=== PATIENT | female | born 1970 | race Caucasian/White ===

== ENCOUNTER → 2016-08-19 | Outpatient (CLI) | payer OTHER ==
--- NOTE | 2016-08-19 21:47 | US ---
EXAMINATION TYPE: US venous doppler duplex LE BI DATE OF EXAM: 08/19/2016 2:56 PM COMPARISON: NONE CLINICAL HISTORY: 46-year-old female Edema R60.0. Patient complaining of left knee pain and swelling with left calf swelling increasing since 2010 left knee arthroscopy. Patient states has gained weight TECHNIQUE: Duplex Doppler ultrasound examination of the bilateral lower extremities. FINDINGS: SIDE PERFORMED: Bilateral VESSELS IMAGED: External Iliac Vein (EIV) Common Femoral Vein Deep Femoral Vein Greater Saphenous Vein * Femoral Vein Popliteal Vein Small Saphenous Vein * Proximal Calf Veins Posterior tibial veins (* superficial vessels) Right Leg: Negative for DVT Left Leg: Negative for DVT IMPRESSION: No evidence for DVT within the bilateral lower extremities.
== END | disposition home or self-care (01) ==
LOC: RADUSWWP 14:01
PROVIDERS: ATTEND Family Medicine
DX: R60.0 Localized edema (principal)
CPT/HCPCS: 93970

== ENCOUNTER → 2016-09-23 | Outpatient (CLI) | payer OTHER ==
--- NOTE | 2016-09-24 13:10 | MM ---
Reason for exam: screening (asymptomatic). Last mammogram was performed 1 year and 1 month ago. History: Patient is postmenopausal. Taking estrogen for 1 year beginning at age 44. Physical Findings: A clinical breast exam by your physician is recommended on an annual basis and results should be correlated with mammographic findings. MG Screening Mammo w CAD Bilateral CC and MLO view(s) were taken. Prior study comparison: August 29, 2015, bilateral MG screening mammo w CAD. February 10, 2014, bilateral MG screening mammo w CAD. The breast tissue is heterogeneously dense. This may lower the sensitivity of mammography. Finding: There are coarse heterogeneous, grouped/clustered calcifications in the upper quadrant, middle position of the right breast, 8 cm from the nipple. New finding since August 29, 2015. ASSESSMENT: Incomplete: need additional imaging evaluation, BI-RAD 0 RECOMMENDATION: Special view mammogram of the right breast. [facility] will attempt to contact patient to return for supplemental views.
== END ==
LOC: RADMAMWWP 16:00
PROVIDERS: ATTEND Obstetrics & Gynecology
DX: Z12.31 Encounter for screening mammogram for malignant neoplasm of breast (principal); R92.8 Other abnormal and inconclusive findings on diagnostic imaging of breast

== ENCOUNTER → 2017-01-03 | Outpatient (CLI) | payer OTHER ==
--- NOTE | 2017-01-07 07:26 | MM ---
Reason for exam: additional evaluation requested from abnormal screening. Last mammogram was performed 3 months ago. History: Patient is postmenopausal. Taking estrogen for 1 year beginning at age 44. Physical Findings: Nurse did not find any significant physical abnormalities on exam. MG 3D Work Up W/Cad RT CC with magnification, MLO with magnification, and LM view(s) were taken of the right breast. Prior study comparison: September 23, 2016, bilateral MG screening mammo w CAD. August 29, 2015, bilateral MG screening mammo w CAD. The breast tissue is heterogeneously dense. This may lower the sensitivity of mammography. Finding: There are intermediate concern, suspicious round, grouped/clustered calcifications in the upper inner quadrant, middle position of the right breast 8cm from the nipple. New finding since August 29, 2015. These results were verbally communicated with the patient and result sheet given to the patient on 01/03/17. ASSESSMENT: Suspicious, BI-RAD 4 RECOMMENDATION: Surgical consultation and stereotactic core biopsy of the right breast. Called with mammographic findings and has scheduled an appointment for the patient for 01/09/17 at 10:[address] Painting. PRELIMINARY REPORT CALLED AND FAXED TO DR. PAINTING ON 01/07/17 AT 300/TMP.
== END | disposition home or self-care (01) ==
LOC: RADMAMWWP 14:40
PROVIDERS: ATTEND Obstetrics & Gynecology
DX: R92.8 Other abnormal and inconclusive findings on diagnostic imaging of breast (principal)
CPT/HCPCS: G0206; G0279

== ENCOUNTER → 2017-01-29 | Day surgery (SDC) | payer OTHER ==
[2017-01-29 14:05] VITALS: RESP 16; BMI 37.8
[2017-01-29 15:11] VITALS: BP 142/84; PULSE 83; TEMP 98.3
--- NOTE | 2017-01-29 15:35 | MM ---
EXAMINATION TYPE: MG stereo VAD BX RT DATE OF EXAM: 01/29/2017 COMPARISON: 09/23/2016 and 01/03/2017 CLINICAL HISTORY: 46-year-old female abnormal mammogram, new right breast calcifications. TECHNIQUE: Stereotactic guided core biopsy of the right breast. FINDINGS: The procedure of stereotactic guided core biopsy was explained to the patient. Benefits, alternatives, and risks were discussed. An informed consent was then obtained. The [facility] pathway for biopsy [facility]. I performed the localization followed by the remainder of the procedure. An 8 gauge mammotome biopsy gun was used to obtain 4 core samples. The patient tolerated the procedure well without any immediate complication. The patient was kept in the radiology department for short stay after the procedure and then discharged home in stable condition. Targeted calcifications are identified in specimen mammogram. Post biopsy mammogram shows the clip to appear in satisfactory position relative to the targeted area of concern on the preprocedure images. IMPRESSION: SUCCESSFUL, UNCOMPLICATED STEREOTACTIC GUIDED CORE BIOPSY OF RIGHT BREAST UPPER- OUTER QUADRANT MICROCALCIFICATIONS; FULL PATHOLOGY RESULTS TO FOLLOW. 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 Recommendation Surgical consult of the right breast. YOANA
== END ==
LOC: RADMAMWWP 13:44
PROVIDERS: ATTEND Obstetrics & Gynecology
DX: N60.91 Unspecified benign mammary dysplasia of right breast (principal); N64.89 Other specified disorders of breast; R92.8 Other abnormal and inconclusive findings on diagnostic imaging of breast; Z88.5 Allergy status to narcotic agent; Z88.0 Allergy status to penicillin
CPT/HCPCS: 88305; 19081; A4648; J2001

== ENCOUNTER 2017-02-21 06:51 | Day surgery (SDC) | payer OTHER ==
[2017-02-17 13:09] VITALS: BMI 38.1
[~2017-02-21 06:51] MED LIST: DEXAMETHASONE SOD PHOSPHATE 10 MG/ML 1 ML VIAL IV ONE; HEPARIN SODIUM,PORCINE 5,000 UNIT/ML 1 ML VIAL SQ ONE; LACTATED RINGERS 1,000 ML IV SCH; LIDOCAINE 1% 20 ML VIAL (10MG/ML) FOR IV START INTRADERMA PRN; ONDANSETRON 4 MG/2 ML VIAL IVP ONE; Pre Op ABX Message 1 EACH MISC MISCELLANE ONE; SCOPOLAMINE 1.5MG/72HR PATCH TRANSDERM ONE; fentaNYL (PF) 50 MCG/ML 2 ML AMP IV PRN
[2017-02-21] MEDS ORDERED: ALPRAZolam 0.5 MG TAB PO ONE (07:33)
[2017-02-21] MEDS ORDERED: CLINDAMYCIN 600 MG in DEXTROSE 5% IN WATER 50 ML IVPB STA ×2 (08:06)
[2017-02-21] MEDS ORDERED: LIDOCAINE 1% INJ 10MG/ML (20 ML MDV) SQ ONE (08:09)
--- NOTE | 2017-02-21 08:31 | MM ---
EXAMINATION TYPE: MG pre op needle loc RT DATE OF EXAM: 02/21/2017 COMPARISON: 09/23/2016 CLINICAL HISTORY: Abnormal core biopsy TECHNIQUE: Needle localization with wire placement and surgical excision of area of concern in the ri ght breast. FINDINGS: The procedure of needle localization with wire placement and than surgical excision was exp lained to the patient. Benefits, alternatives, and risks were discussed. An informed consent was th en obtained. The shortest pathway for procedure was chosen. Shortest pathway was CC top approach. The overlying s kin was prepped and draped in usual sterile fashion. Lidocaine buffered with bicarbonate was used as anesthetic into the skin and subcutaneous tissue up to the level of area of concern. A 7 cm needle was used. It was placed via a superior approach under mammographic guidance. Subsequent 90 degrees mammogram show the needle to be in satisfactory position relative to the targeted area. At this poin t, wire was placed and the needle was withdrawn. The wire was fixed to patient's skin. Images were marked for surgeon. IMPRESSION: 1. Successful wire localization for surgical excision. Recommendations: 1. Recommendations are pending pathology results.
[2017-02-21] MEDS ORDERED: GLYCOPYRROLATE 0.2 MG/ML 2 ML VIAL ONE (10:09)
[2017-02-21] MEDS ORDERED: fentaNYL (PF) 50 MCG/ML 2 ML AMP ONE (10:09)
[2017-02-21] MEDS ORDERED: PROPOFOL 10 MG/ML 20 ML VIAL IV ONE (10:09)
[2017-02-21] MEDS ORDERED: DEXAMETHASONE SOD PHOS (MDV) 100 MG/10 ML VIAL ONE (10:09)
[2017-02-21] MEDS ORDERED: LIDOCAINE 1% INJ 10MG/ML (20 ML MDV) ONE (10:09)
[2017-02-21] MEDS ORDERED: MIDAZOLAM 2 MG/2 ML VIAL ONE (10:09)
[2017-02-21] MEDS ORDERED: SUCCINYLCHOLINE CHLORIDE VIAL 200 MG/10 ML VIAL IV ONE (10:09)
[2017-02-21] MEDS ORDERED: LIDOCAINE 2%-EPI 1:100,000 20 ML VIAL SQ ONE ×2 (10:40)
[2017-02-21] MEDS ORDERED: LACTATED RINGERS 1,000 ML IV ONE (10:43)
[2017-02-21 11:53] VITALS: TEMP 97
--- NOTE | 2017-02-21 12:07 | P.OP ---
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 Informed consent obtained and patient elected to undergo wire localization lumpectomy. Operative Findings: Description of Procedure: The mammogram films from wire localization biopsy were reviewed. The patient was brought to the operating room and placed in supine position with both arms out. General anesthesia with endotracheal intubation was performed as per anesthesia team. The excess wire was cut and right breast was prepped using ChloraPrep. Sterile drapes were applied. A timeout was performed to verify correct patient, correct procedure and correct side. Patient was confirmed to receive perioperative IV antibiotics, heparin 5000 units subcutaneous injection for DVT prophylaxis and bilateral SCDs. A 3 cm horizontal skin incision was made along natural skin crease overlying the wire. Superior and inferior subcutaneous flaps were raised in the direction of wire. A 2 cm circumferential breast tissue was removed around the wire and the tip of the wire was included in the specimen. The specimen was then labeled with different colors as per the protocol. It was sent off as a specimen for pathology. The resulting defect was irrigated with normal saline and checked for hemostasis. The defect measured cm. A 4x3x3 cm biosorb was used and sutured to the cavity using 3-0 Vicryl. This was closed in 3 layers using interrupted sutures of 3-0 Vicryl followed by running subcuticular stitches of 4-0 Monocryl. Dermabond skin glue was applied. The sponge, instrument and needle count were correct -2. Phone formation received during surgery that the area of concern along with the clip and wire was included in the specimen. Patient tolerated the procedure well and was taken to post anesthesia care unit in stable condition.
[2017-02-21 13:01] VITALS: RESP 16
[2017-02-21 13:31] VITALS: BP 127/78; PULSE 80
--- NOTE | 2017-02-21 15:52 | MM ---
EXAMINATION TYPE: MG surgical specimen RT DATE OF EXAM: 02/21/2017 COMPARISON: NONE CLINICAL HISTORY: Abnormal biopsy TECHNIQUE: Needle localization with wire placement and surgical excision of area of concern in the ri ght breast. FINDINGS: Single mammographic image of the specimen was obtained. The wire is within the specimen. The localized clip is within the specimen near the edge rate IMPRESSION: Successful localization and excision of the targeted region which is at the edge of the f [id number].
== END 2017-02-21 13:58 | disposition home or self-care (01) ==
LOC: RADMAMWWP 06:51
PROVIDERS: ATTEND Surgery
DX: N60.91 Unspecified benign mammary dysplasia of right breast (principal); E88.01 Alpha-1-antitrypsin deficiency; Z79.899 Other long term (current) drug therapy; Z88.5 Allergy status to narcotic agent
CPT/HCPCS: 76098; 19281; 19301; C1713; J2250; J0330; J1100 ×2; J2405; J2001; J3010; J2704; 88307

== ENCOUNTER → 2017-12-23 | Outpatient (CLI) | payer OTHER ==
--- NOTE | 2017-12-24 08:56 | MM ---
Reason for exam: additional evaluation requested from prior study. Last mammogram was performed 1 year ago. History: Patient is postmenopausal and has history of breast cancer at age 46. Benign MG pre op needle loc RT of the right breast, February 21, 2017. Malignant MG stereo VAD BX RT of the right breast, January 29, 2017. Took estrogen for 1 year beginning at age 44. Physical Findings: Nurse did not find any significant physical abnormalities on exam. MG 3D Diag Mammo W/Cad LISA Bilateral CC and MLO view(s) were taken. Prior study comparison: January 03, 2017, right breast MG 3d work up w/cad RT. September 23, 2016, bilateral MG screening mammo w CAD. The breast tissue is heterogeneously dense. This may lower the sensitivity of mammography. Surgical clips right breast. No significant new findings when compared with previous films. These results were verbally communicated with the patient and result sheet given to the patient on 12/23/17. ASSESSMENT: Benign, BI-RAD 2 RECOMMENDATION: Follow-up diagnostic mammogram of both breasts in 1 year.
== END | disposition home or self-care (01) ==
LOC: RADMAMWWP 15:27
PROVIDERS: ATTEND Obstetrics & Gynecology
DX: R92.8 Other abnormal and inconclusive findings on diagnostic imaging of breast (principal); Z85.3 Personal history of malignant neoplasm of breast
CPT/HCPCS: 77062; 77066

== ENCOUNTER 2019-02-27 12:59 | Emergency (ER) | payer BC, OTHER ==
[2019-02-27 13:04] VITALS: RESP 16; TEMP 98
[2019-02-27] MEDS ORDERED: SODIUM CHLORIDE 0.9% 1,000 ML IV STA (13:07)
--- NOTE | 2019-02-27 13:38 | ED ---
Abdominal Pain HPI - General Chief Complaint: Abdominal Pain Stated Complaint: Abd pain Time Seen by Provider: 02/27/19 13:06 Source: patient, family Mode of arrival: ambulatory Limitations: no limitations - History of Present Illness Initial Comments: 48-year-old female presents emergency Department with chief complaint of abdominal discomfort, abdominal pressure. Patient states that he's had symptoms last few days. Patient denies any known fevers or chills. Patient felt that she had a urinary tract infection went to urgent care who ran a urinalysis no acute findings. Patient is a here for further evaluation. Patient had multiple C-sections in the past and history of appendectomy. Patient denies any nausea vomiting diarrhea constipation. 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 - Related Data Home Medications Medication Instructions Recorded Confirmed Ergocalciferol (Vitamin D2) 50,000 unit PO WE 01/23/17 02/21/17 [Vitamin D2] Lisinopril [Prinivil] 10 mg PO DAILY 01/23/17 02/17/17 Cetirizine HCl [Zyrtec] 10 mg PO DAILY PRN 01/29/17 02/17/17 Ascorbic Acid [Vitamin C] 500 mg PO DAILY 02/17/17 02/17/17 Magnesium Oxide [Mag-Ox] 250 mg PO DAILY 02/17/17 02/21/17 Multivitamins, Thera [Multivitamin 1 tab PO DAILY 02/17/17 02/17/17 (formulary)] Previous Rx's Medication Instructions Recorded Docusate [Colace] 100 mg PO BID #30 capsule 02/21/17 traMADol HCL [Ultram] 50 mg PO Q4HR PRN #30 tab 02/21/17 Ciprofloxacin HCl [Cipro] 500 mg PO Q12HR #14 tablet 02/27/19 metroNIDAZOLE [Flagyl] 500 mg PO TID #21 tab 02/27/19 Allergies Allergy/AdvReac Type Severity Reaction Status Date / Time Penicillins Allergy Rash/Hives Verified 02/27/19 13:01 codeine AdvReac Vomiting Verified 02/27/19 13:01 Review of Systems ROS Statement: Those systems with pertinent positive or pertinent negative responses have been documented in the HPI. ROS Other: All systems not noted in ROS Statement are negative. Past Medical History Past Medical History: Cancer, Hearing Disorder / Deafness, Hypertension, Liver Disease Additional Past Medical History / Comment(s): ALPHA 1 ANTITRYPSIN DEFICIENCY. RT BREAST CA. EDEMA LT LOWER LEG. NEPHROTIC SYNDROME. HEART MURMUR. F4 cirrhosis History of Any Multi-Drug Resistant Organisms: None Reported Past Surgical History: Section, Hysterectomy, Orthopedic Surgery, Tonsillectomy, Tubal Ligation, Uterine Ablation Additional Past Surgical History / Comment(s): KIDNEY BIOPSY. LT KNEE SCOPE 2010 Past Anesthesia/Blood Transfusion Reactions: Motion Sickness, Postoperative Nausea & Vomiting (PONV) Past Psychological History: No Psychological Hx Reported Smoking Status: Never smoker Past Alcohol Use History: None Reported Past Drug Use History: None Reported - Past Family History Sister(s) Family Medical History: Cancer General Exam Limitations: no limitations General appearance: alert, in no apparent distress Head exam: Present: atraumatic, normocephalic, normal inspection Eye exam: Present: normal appearance, PERRL, EOMI. Absent: scleral icterus, conjunctival injection, periorbital swelling ENT exam: Present: normal exam, normal oropharynx, mucous membranes moist Neck exam: Present: normal inspection, full ROM. Absent: tenderness, meningismus, lymphadenopathy Respiratory exam: Present: normal lung sounds bilaterally. Absent: respiratory distress, wheezes, rales, rhonchi, stridor Cardiovascular Exam: Present: regular rate, normal rhythm, normal heart sounds. Absent: systolic murmur, diastolic murmur, rubs, gallop, clicks GI/Abdominal exam: Present: soft, tenderness (Moderate lower abdominal t enderness), normal bowel sounds. Absent: distended, guarding, rebound, rigid Back exam: Absent: CVA tenderness (R), CVA tenderness (L) Skin exam: Present: warm, dry, intact, normal color. Absent: rash Course Vital Signs 02/27/19 13:01 Temperature 98 F Pulse Rate 86 Respiratory 16 Rate Blood Pressure 137/89 O2 Sat by Pulse 96 Oximetry Medical Decision Making - Medical Decision Making 48-year-old female presents emergency Department with chief complaint of abdominal discomfort. CT shows evidence of mild diverticulitis. Patient be treated with Cipro Flagyl as she has an ALLERGY to penicillin products. Patient is scheduled for colonoscopy. Patient is advised to do clear liquid diet and return for any worsening symptoms. - Lab Data Result diagrams: 02/27/19 13:40 02/27/19 13:40 Lab Results 02/27/19 02/27/19 02/27/19 Range/Units 13:30 13:40 13:40 WBC 6.3 (3.8-10.6) k/uL RBC 4.52 (3.80-5.40) m/uL Hgb 13.8 (11.4-16.0) gm/dL Hct 42.0 (34.0-46.0) % MCV 92.9 (80.0-100.0) fL MCH 30.5 (25.0-35.0) pg MCHC 32.8 (31.0-37.0) g/dL RDW 14.7 (11.5-15.5) % Plt Count 125 L (150-450) k/uL Neutrophils % 45 % Lymphocytes % 40 % Monocytes % 8 % Eosinophils % 3 % Basophils % 0 % Neutrophils # 2.8 (1.3-7.7) k/uL Lymphocytes # 2.5 (1.0-4.8) k/uL Monocytes # 0.5 (0-1.0) k/uL Eosinophils # 0.2 (0-0.7) k/uL Basophils # 0.0 (0-0.2) k/uL Sodium 141 (137-145) mmol/L Potassium 4.0 (3.5-5.1) mmol/L Chloride 105 (98-107) mmol/L Carbon Dioxide 25 (22-30) mmol/L Anion Gap 11 mmol/L BUN 11 (7-17) mg/dL Creatinine 0.52 (0.52-1.04) mg/dL Est GFR (CKD-EPI)AfAm >90 (>60 ml/min/1.73 sqM) Est GFR (CKD-EPI)NonAf >90 (>60 ml/min/1.73 sqM) Glucose 83 (74-99) mg/dL Plasma Lactic Acid Benigno (0.7-2.0) mmol/L Calcium 9.5 (8.4-10.2) mg/dL Total Bilirubin 0.4 (0.2-1.3) mg/dL AST 59 H (14-36) U/L ALT 51 (9-52) U/L Alkaline Phosphatase 121 (38-126) U/L Total Protein 8.2 (6.3-8.2) g/dL Albumin 4.4 (3.5-5.0) g/dL Lipase 74 (23-300) U/L Urine Color Yellow Urine Appearance Clear (Clear) Urine pH 6.5 (5.0-8.0) Ur Specific [place] 1.017 (1.001-1.035) Urine Protein Negative (Negative) Urine Glucose (UA) Negative (Negative) Urine Ketones Negative (Negative) Urine Blood Negative (Negative) Urine Nitrite Negative (Negative) Urine Bilirubin Negative (Negative) Urine Urobilinogen <2.0 (<2.0) mg/dL Ur Leukocyte Esterase Negative (Negative) 02/27/19 Range/Units 13:40 WBC (3.8-10.6) k/uL RBC (3.80-5.40) m/uL Hgb (11.4-16.0) gm/dL Hct (34.0-46.0) % MCV (80.0-100.0) fL MCH (25.0-35.0) pg MCHC (31.0-37.0) g/dL RDW (11.5-15.5) % Plt Count (150-450) k/uL Neutrophils % % Lymphocytes % % Monocytes % % Eosinophils % % Basophils % % Neutrophils # (1.3-7.7) k/uL Lymphocytes # (1.0-4.8) k/uL Monocytes # (0-1.0) k/uL Eosinophils # (0-0.7) k/uL Basophils # (0-0.2) k/uL Sodium (137-145) mmol/L Potassium (3.5-5.1) mmol/L Chloride (98-107) mmol/L Carbon Dioxide (22-30) mmol/L Anion Gap mmol/L BUN (7-17) mg/dL Creatinine (0.52-1.04) mg/dL Est GFR (CKD-EPI)AfAm (>60 ml/min/1.73 sqM) Est GFR (CKD-EPI)NonAf (>60 ml/min/1.73 sqM) Glucose (74-99) mg/dL Plasma Lactic Acid Benigno 1.4 (0.7-2.0) mmol/L Calcium (8.4-10.2) mg/dL Total Bilirubin (0.2-1.3) mg/dL AST (14-36) U/L ALT (9-52) U/L Alkaline Phosphatase (38-126) U/L Total Protein (6.3-8.2) g/dL Albumin (3.5-5.0) g/dL Lipase (23-300) U/L Urine Color Urine Appearance (Clear) Urine pH (5.0-8.0) Ur Specific [place] (1.001-1.035) Urine Protein (Negative) Urine Glucose (UA) (Negative) Urine Ketones (Negative) Urine Blood (Negative) Urine Nitrite (Negative) Urine Bilirubin (Negative) Urine Urobilinogen (<2.0) mg/dL Ur Leukocyte Esterase (Negative) Disposition Clinical Impression: Diverticulitis Disposition: HOME SELF-CARE Condition: Stable Instructions (If sedation given, give patient instructions): Diverticulitis Diet (ED), Diverticulitis (ED) Additional Instructions: Please return to the Emergency Department if symptoms worsen or any other concerns. Prescriptions: Ciprofloxacin HCl [Cipro] 500 mg PO Q12HR #14 tablet metroNIDAZOLE [Flagyl] 500 mg PO TID #21 tab Is patient prescribed a controlled substance at d/c from ED?: No Referrals: Phill Berumen DO [Primary Care Provider] - 1-2 days Time of Disposition: 15:03
[2019-02-27 13:53] LABS: Appearance,Urine Clear (Clear); Bilirubin,Urine Negative (Negative); Blood,Urine Negative (Negative); Color,Urine Yellow; Glucose,Urine (UA) Negative (Negative); Ketones,Urine Negative (Negative); Leukocyte Esterase,Urine Negative (Negative); Nitrite,Urine Negative (Negative); PH, Urine 6.5 (5.0-8.0); Protein,Urine Negative (Negative); Specific Gravity,Urine 1.017 (1.001-1.035); Urobilinogen,Urine <2.0 mg/dL (<2.0)
[2019-02-27 13:53] LABS: Basophils % (A) 0 %; Eosinophils # (A) 0.2 k/uL (0-0.7); Eosinophils % (A) 3 %; HGB 13.8 gm/dL (11.4-16.0); Lymphocytes # (A) 2.5 k/uL (1.0-4.8); Lymphocytes % (A) 40 %; MCH 30.5 pg (25.0-35.0); MCHC 32.8 g/dL (31.0-37.0); MCV 92.9 fL (80.0-100.0); Mean Platelet Volume 7.3; Monocytes # (A) 0.5 k/uL (0-1.0); Monocytes % (A) 8 %; Neutrophils # (A) 2.8 k/uL (1.3-7.7); Neutrophils % (A) 45 %; Platelet Count 125 k/uL (150-450); RBC 4.52 m/uL (3.80-5.40); RDW 14.7 % (11.5-15.5); WBC 6.3 k/uL (3.8-10.6)
[2019-02-27 14:05] LABS: ALT 51 U/L (9-52); AST 59 U/L (14-36); African American GFR (CKD) >90 (>60 ml/min/1.73 sqM); Albumin 4.4 g/dL (3.5-5.0); Alkaline Phosphatase 121 U/L (38-126); Anion Gap 11 mmol/L; Blood Urea Nitrogen 11 mg/dL (7-17); Calcium 9.5 mg/dL (8.4-10.2); Carbon Dioxide 25 mmol/L (22-30); Chloride 105 mmol/L (98-107); Glucose 83 mg/dL (74-99); Non-African American GFR(CKD) >90 (>60 ml/min/1.73 sqM); Sodium 141 mmol/L (137-145); Total Bilirubin 0.4 mg/dL (0.2-1.3); Total Protein 8.2 g/dL (6.3-8.2)
--- NOTE | 2019-02-27 14:47 | CT ---
EXAMINATION TYPE: CT abdomen pelvis w con DATE OF EXAM: 02/27/2019 COMPARISON: 11/08/2013 HISTORY: Pelvic pain and pressure x [address] DLP: 1069.2 mGycm Automated exposure control for dose reduction was used. TECHNIQUE: Helical acquisition of images was performed from the lung bases through the pelvis. CONTRAST: Performed without Oral Contrast and with IV Contrast, patient injected with 100 mL of Isovue M300. FINDINGS: There is minimal reticular density at the lung bases. There is no pleural effusion. There is no peric ardial effusion. Stomach appears fairly normal. Spleen is mildly enlarged and measures 13 cm. Liver s hows no focal defect. Bile ducts are not dilated. There is no pancreatic mass. Gallbladder appears no rmal. There is no adrenal mass. Kidneys show satisfactory contrast opacification. There is no hydronephrosi s. Ureters are not dilated. There is no retroperitoneal adenopathy. There are multiple diverticula in the sigmoid colon. Bladder distends smoothly. There is no inguinal hernia. There is no free fluid in the pelvis. There is no sign of thickened appendix. There is some very mini mal fat stranding around the sigmoid colon. There is no evidence of an abscess. There is no sign of p elvic mass. There is no evidence of free air. Hysterectomy is noted. There are spondylotic changes in the lumbar spine. There is no compression fracture. Bony pelvis appe ars intact. There is some posterior multilevel lumbar disc herniation without significant spinal sten osis. IMPRESSION: THERE IS MILD SIGMOID DIVERTICULOSIS. THERE IS MINIMAL INFLAMMATORY CHANGES AROUND THE SIGMOID COLON SUGGESTIVE OF MILD DIVERTICULITIS. THIS IS A CHANGE COMPARED TO OLD EXAM. THERE IS MILD SPLENOMEGALY THAT IS NEW COMPARED TO OLD EXAM.
[2019-02-27 15:29] VITALS: BP 129/85; PULSE 88
== END 2019-02-27 15:29 | disposition home or self-care (01) ==
LOC: EC 12:59
DX: K57.92 Diverticulitis of intestine, part unspecified, without perforation or abscess without bleeding (principal); I10 Essential (primary) hypertension; Z85.3 Personal history of malignant neoplasm of breast; Z90.710 Acquired absence of both cervix and uterus; Z98.51 Tubal ligation status; Z98.890 Other specified postprocedural states; Z90.49 Acquired absence of other specified parts of digestive tract; Z79.899 Other long term (current) drug therapy; Z88.5 Allergy status to narcotic agent; Z88.0 Allergy status to penicillin
CPT/HCPCS: 36415; 80053; 83605; 83690; 85025; 81003; 74177; 99284; 96360; Q9967

== ENCOUNTER 2024-07-21 08:05 | Emergency (ER) | payer MEDICARE, OTHER ==
[2024-07-21 08:13] VITALS: TEMP 98.2
--- NOTE | 2024-07-21 08:46 | ED ---
Abdominal Pain HPI - General Chief Complaint: Abdominal Pain Stated Complaint: abd pain Time Seen by Provider: 07/21/24 08:15 Source: patient, family, RN notes reviewed Mode of arrival: ambulatory Limitations: no limitations - History of Present Illness Initial Comments: Patient is a 54 year old female presenting to ER with worsening abdominal pain for the past week. She describes the pain as "achey" and diffuse with radiation to her back. She states the pain is worse with food and fluids, as she feels full easily. She states she has a headache and dyspnea on exertion which are both new for her, as well as nausea without vomiting, and chronic diarrhea. She has tried Tylenol, but it has not helped. She endorses multiple abdominal surgeries in the past including a hysterectomy and appendectomy. 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 - Related Data Home Medications Medication Instructions Recorded Confirmed Ergocalciferol (Vitamin D2) 50,000 unit PO WE 01/23/17 02/21/17 [Vitamin D2] lisinopriL [Prinivil] 10 mg PO DAILY 01/23/17 02/17/17 Cetirizine HCl [Zyrtec] 10 mg PO DAILY PRN 01/29/17 02/17/17 Ascorbic Acid [Vitamin C] 500 mg PO DAILY 02/17/17 02/17/17 Magnesium Oxide [Mag-Ox] 250 mg PO DAILY 02/17/17 02/21/17 Multivitamins, Thera [Multivitamin 1 tab PO DAILY 02/17/17 02/17/17 (formulary)] Previous Rx's Medication Instructions Recorded Docusate [Colace] 100 mg PO BID #30 capsule 02/21/17 traMADol HCL [Ultram] 50 mg PO Q4HR PRN #30 tab 02/21/17 Ciprofloxacin HCl [Cipro] 500 mg PO Q12HR #14 tablet 02/27/19 metroNIDAZOLE [Flagyl] 500 mg PO TID #21 tab 02/27/19 Allergies Allergy/AdvReac Type Severity Reaction Status Date / Time Penicillins Allergy Rash/Hives Verified 07/21/24 08:08 codeine AdvReac Vomiting Verified 07/21/24 08:08 Review of Systems ROS Statement: Those systems with pertinent positive or pertinent negative responses have been documented in the HPI. ROS Other: All systems not noted in ROS Statement are negative. Past Medical History Past Medical History: Cancer, Hearing Disorder / Deafness, Hypertension, Liver Disease Additional Past Medical History / Comment(s): ALPHA 1 ANTITRYPSIN DEFICIENCY. RT BREAST CA. EDEMA LT LOWER LEG. NEPHROTIC SYNDROME. HEART MURMUR. F4 cirrhosis History of Any Multi-Drug Resistant Organisms: None Reported Past Surgical History: Section, Hysterectomy, Orthopedic Surgery, Tonsillectomy, Tubal Ligation, Uterine Ablation Additional Past Surgical History / Comment(s): KIDNEY BIOPSY. LT KNEE SCOPE 2010 Past Anesthesia/Blood Transfusion Reactions: Motion Sickness, Postoperative Nausea & Vomiting (PONV) Past Psychological History: No Psychological Hx Reported Smoking Status: Never smoker Past Alcohol Use History: None Reported Past Drug Use History: None Reported - Past Family History Sister(s) Family Medical History: Cancer General Exam Limitations: no limitations General appearance: alert, in no apparent distress Head exam: Present: atraumatic, normocephalic, normal inspection ENT exam: Present: normal exam, mucous membranes moist Neck exam: Present: normal inspection. Absent: tenderness, meningismus, lymp hadenopathy Respiratory exam: Present: normal lung sounds bilaterally. Absent: respiratory distress, wheezes, rales, rhonchi, stridor Cardiovascular Exam: Present: regular rate, normal rhythm, normal heart sounds. Absent: systolic murmur, diastolic murmur, rubs, gallop, clicks GI/Abdominal exam: Present: distended (mild), normal bowel sounds. Absent: tenderness, guarding, rebound Extremities exam: Present: pedal edema. Absent: calf tenderness Back exam: Present: normal inspection. Absent: CVA tenderness (R), CVA tenderness (L) Neurological exam: Present: alert, oriented X3, CN II-XII intact Psychiatric exam: Present: normal affect, normal mood Skin exam: Present: warm, dry, intact, normal color. Absent: rash Course Vital Signs 07/21/24 07/21/24 07/21/24 08:06 08:53 10:12 Temperature 98.2 F Pulse Rate 111 H 98 85 Respiratory 19 20 16 Rate Blood Pressure 143/81 143/83 140/68 O2 Sat by Pulse 93 L 95 98 Oximetry 07/21/24 11:22 Temperature Pulse Rate 65 Respiratory 16 Rate Blood Pressure 135/68 O2 Sat by Pulse 98 Oximetry Medical Decision Making - Medical Decision Making Was pt. sent in by a medical professional or institution (, [facility], CONSULTING SENIOR PRACTICE DIRECTOR, urgent care, hospital, or alf...) When possible be specific @ -No Did you speak to anyone other than the patient for history (EMS, parent, family, police, friend...)? What history was obtained from this source @ -No Did you review nursing and triage notes (agree or disagree)? Why? @ -I reviewed and agree with nursing and triage notes Were old charts reviewed (outside hosp., previous admission, EMS record, old EKG, old radiological studies, urgent care reports/EKG's, alf records)? Report findings @ -No old charts were reviewed Differential Diagnosis (chest pain, altered mental status, abdominal pain women, abdominal pain men, vaginal bleeding, weakness, fever, dyspnea, syncope, headache, dizziness, GI bleed, back pain, seizure, CVA, palpatations, mental health, musculoskeletal)? @ -Differential Abdominal Pain Women: Appendicitis, Cholecystitis, diverticulosis, ischemic bowel, pancreatitis, hepatitis, UTI, gastroenteritis, AAA, incarcerated hernia, bowel obstruction, constipation, inflammatory bowel, hepatitis, peptic ulcer disease, splenic infarction, perforated viscus, vulvitis, ovarian torsion, PID, kidney stone, placenta abruption, this is not meant to be an all-inclusive list EKG interpreted by me (3pts min.). @ -None X-rays interpreted by me (1pt min.). @ -None done CT interpreted by me (1pt min.). @ -CT abdomen pelvis showing moderate ascites U/S interpreted by me (1pt. min.). @ -None done What testing was considered but not performed or refused? (CT, X-rays, U/S, labs)? Why? @ -None What meds were considered but not given or refused? Why? @ -None Did you discuss the management of the patient with other professionals (professionals i.e. [facility] Munoz, CONSULTING SENIOR PRACTICE DIRECTOR, lab, RT, psych nurse, social work msw, rn care transition, teacher, banking officer, piano case and bench assembler)? Give summary @ -No Was smoking cessation discussed for >3mins.? @ -No Was critical care preformed (if so, how long)? @ -No Were there social determinants of health that impacted care today? How? (Home lessness, low income, unemployed, alcoholism, drug addiction, transportation, low edu. Level, literacy, decrease access to med. care, fpc, rehab)? @ -No Was there de-escalation of care discussed even if they declined (Discuss DNR or withdrawal of care, Hospice)? DNR status @ -No What co-morbidities impacted this encounter? (DM, HTN, Smoking, COPD, CAD, Cancer, CVA, ARF, Chemo, Hep., AIDS, mental health diagnosis, sleep apnea, morbid obesity)? @ -Liver cirrhosis Was patient admitted / discharged? Hospital course, mention meds given and route, prescriptions, significant lab abnormalities, going to OR and other pertinent info. @ -Charge patient has moderate ascites may require paracentesis she is otherwise stable and having worsening liver disease she has a follow-up appointment with her police captain precinct advised to follow-up or make sooner appointment for possible paracentesis Undiagnosed new problem with uncertain prognosis? @ -No Drug Therapy requiring intensive monitoring for toxicity (Heparin, Nitro, Insulin, Cardizem)? @ -No Were any procedures done? @ -No Diagnosis/symptom? @ -Ascites, abdominal pain Acute, or Chronic, or Acute on Chronic? @ -Acute Uncomplicated (without systemic symptoms) or Complicated (systemic symptoms)? @ -Complicated Side effects of treatment? @ -No Exacerbation, Progression, or Severe Exacerbation? @ -No Poses a threat to life or bodily function? How? (Chest pain, [place], [place], pneumonia, PE, COPD, DKA, ARF, appy, cholecystitis, CVA, Diverticulitis, Homicidal, Suicidal, threat to staff... and all critical care pts) @ -No - Lab Data Result diagrams: 07/21/24 08:37 07/21/24 08:37 Lab Results 07/21/24 07/21/24 07/21/24 Range/Units 08:37 08:37 08:37 WBC 4.7 (3.8-10.6) k/uL RBC 3.78 L (3.80-5.40) m/uL Hgb 13.4 (11.4-16.0) gm/dL Hct 39.7 (34.0-46.0) % MCV 104.9 H (80.0-100.0) fL MCH 35.5 H (25.0-35.0) pg MCHC 33.9 (31.0-37.0) g/dL RDW 15.8 H (11.5-15.5) % Plt Count 74 L (150-450) k/uL MPV 8.3 Neutrophils % 48 % Lymphocytes % 38 % Monocytes % 6 % Eosinophils % 5 % Basophils % 1 % Neutrophils # 2.3 (1.3-7.7) k/uL Lymphocytes # 1.8 (1.0-4.8) k/uL Monocytes # 0.3 (0-1.0) k/uL Eosinophils # 0.2 (0-0.7) k/uL Basophils # 0.0 (0-0.2) k/uL Manual Slide Review Performed Macrocytosis Moderate Sodium 140 (137-145) mmol/L Potassium 3.7 (3.5-5.1) mmol/L Chloride 111 H (98-107) mmol/L Carbon Dioxide 21 L (22-30) mmol/L Anion Gap 8 mmol/L BUN 10 (7-17) mg/dL Creatinine 0.49 L (0.52-1.04) mg/dL Est GFR (CKD-EPI)AfAm >90 (>60 ml/min/1.73 sqM) Est GFR (CKD-EPI)NonAf >90 (>60 ml/min/1.73 sqM) Glucose 92 (74-99) mg/dL Plasma Lactic Acid Benigno 2.0 (0.7-2.0) mmol/L Calcium 8.3 L (8.4-10.2) mg/dL Total Bilirubin 2.4 H (0.2-1.3) mg/dL AST 59 H (14-36) U/L ALT 34 (4-34) U/L Alkaline Phosphatase 273 H (38-126) U/L Total Protein 6.9 (6.3-8.2) g/dL Albumin 3.1 L (3.5-5.0) g/dL Lipase 83 (23-300) U/L Urine Color Urine Appearance (Clear) Urine pH (5.0-8.0) Ur Specific Bryan (1.001-1.035) Urine Protein (Negative) Urine Glucose (UA) (Negative) Urine Ketones (Negative) Urine Blood (Negative) Urine Nitrite (Negative) Urine Bilirubin (Negative) Urine Urobilinogen (<2.0) mg/dL Ur Leukocyte Esterase (Negative) Urine RBC (0-5) /hpf Urine WBC (0-5) /hpf Ur Squamous Epith Cells (0-4) /hpf Urine Mucus (None) /hpf 07/21/24 Range/Units 08:49 WBC (3.8-10.6) k/uL RBC (3.80-5.40) m/uL Hgb (11.4-16.0) gm/dL Hct (34.0-46.0) % MCV (80.0-100.0) fL MCH (25.0-35.0) pg MCHC (31.0-37.0) g/dL RDW (11.5-15.5) % Plt Count (150-450) k/uL MPV Neutrophils % % Lymphocytes % % Monocytes % % Eosinophils % % Basophils % % Neutrophils # (1.3-7.7) k/uL Lymphocytes # (1.0-4.8) k/uL Monocytes # (0-1.0) k/uL Eosinophils # (0-0.7) k/uL Basophils # (0-0.2) k/uL Manual Slide Review Macrocytosis Sodium (137-145) mmol/L Potassium (3.5-5.1) mmol/L Chloride (98-107) mmol/L Carbon Dioxide (22-30) mmol/L Anion Gap mmol/L BUN (7-17) mg/dL Creatinine (0.52-1.04) mg/dL Est GFR (CKD-EPI)AfAm (>60 ml/min/1.73 sqM) Est GFR (CKD-EPI)NonAf (>60 ml/min/1.73 sqM) Glucose (74-99) mg/dL Plasma Lactic Acid Benigno (0.7-2.0) mmol/L Calcium (8.4-10.2) mg/dL Total Bilirubin (0.2-1.3) mg/dL AST (14-36) U/L ALT (4-34) U/L Alkaline Phosphatase (38-126) U/L Total Protein (6.3-8.2) g/dL Albumin (3.5-5.0) g/dL Lipase (23-300) U/L Urine Color Dark Yellow Urine Appearance Cloudy H (Clear) Urine pH 5.5 (5.0-8.0) Ur Specific Bryan 1.035 (1.001-1.035) Urine Protein 1+ H (Negative) Urine Glucose (UA) Negative (Negative) Urine Ketones Negative (Negative) Urine Blood Trace H (Negative) Urine Nitrite Negative (Negative) Urine Bilirubin Negative (Negative) Urine Urobilinogen 2.0 (<2.0) mg/dL Ur Leukocyte Esterase Negative (Negative) Urine RBC 3 (0-5) /hpf Urine WBC 2 (0-5) /hpf Ur Squamous Epith Cells 23 H (0-4) /hpf Urine Mucus Many H (None) /hpf Disposition Clinical Impression: Abdominal pain, Ascites Disposition: HOME SELF-CARE Condition: Stable Instructions (If sedation given, give patient instructions): Abdominal Pain (ED) Additional Instructions: Please return to the Emergency Department if symptoms worsen or any other concerns. Is patient prescribed a controlled substance at d/c from ED?: No Referrals: Zayda Fox MD [Primary Care Provider] - 1-2 days Time of Disposition: 10:26
[2024-07-21] MEDS: SODIUM CHLORIDE 0.9% 1,000 ML IV STA (08:50)
[2024-07-21] MEDS: ONDANSETRON 4 MG/2 ML VIAL IVP STA (08:50)
[2024-07-21 09:21] LABS: ALT 34 U/L (4-34); AST 59 U/L (14-36); African American GFR (CKD) >90 (>60 ml/min/1.73 sqM); Albumin 3.1 g/dL (3.5-5.0); Alkaline Phosphatase 273 U/L (38-126); Anion Gap 8 mmol/L; Blood Urea Nitrogen 10 mg/dL (7-17); Calcium 8.3 mg/dL (8.4-10.2); Carbon Dioxide 21 mmol/L (22-30); Chloride 111 mmol/L (98-107); Glucose 92 mg/dL (74-99); Lipase 83 U/L (23-300); Non-African American GFR(CKD) >90 (>60 ml/min/1.73 sqM); Potassium 3.7 mmol/L (3.5-5.1); Sodium 140 mmol/L (137-145); Total Bilirubin 2.4 mg/dL (0.2-1.3); Total Protein 6.9 g/dL (6.3-8.2)
[2024-07-21 09:25] LABS: Basophils % (A) 1 %; Eosinophils # (A) 0.2 k/uL (0-0.7); Eosinophils % (A) 5 %; HCT 39.7 % (34.0-46.0); HGB 13.4 gm/dL (11.4-16.0); Lymphocytes # (A) 1.8 k/uL (1.0-4.8); Lymphocytes % (A) 38 %; MCH 35.5 pg (25.0-35.0); MCHC 33.9 g/dL (31.0-37.0); MCV 104.9 fL (80.0-100.0); Macrocytosis Moderate; Mean Platelet Volume 8.3; Monocytes # (A) 0.3 k/uL (0-1.0); Monocytes % (A) 6 %; Neutrophils # (A) 2.3 k/uL (1.3-7.7); Neutrophils % (A) 48 %; RBC 3.78 m/uL (3.80-5.40); RDW 15.8 % (11.5-15.5); WBC 4.7 k/uL (3.8-10.6)
[2024-07-21 09:28] LABS: Appearance,Urine Cloudy (Clear); Bilirubin,Urine Negative (Negative); Blood,Urine Trace (Negative); Color,Urine Dark Yellow; Glucose,Urine (UA) Negative (Negative); Ketones,Urine Negative (Negative); Leukocyte Esterase,Urine Negative (Negative); Mucus,Urine Many /hpf; Nitrite,Urine Negative (Negative); PH, Urine 5.5 (5.0-8.0); Protein,Urine 1+ (Negative); RBC,Urine 3 /hpf (0-5); Specific Gravity,Urine 1.035 (1.001-1.035); Squamous Epithelial Cell,Urine 23 /hpf (0-4); WBC,Urine 2 /hpf (0-5)
[2024-07-21 09:35] LABS: Platelet Count 74 k/uL (150-450)
--- NOTE | 2024-07-21 09:54 | CT ---
EXAMINATION TYPE: CT abdomen pelvis w con DATE OF EXAM: 07/21/2024 9:44 AM COMPARISON: None. CLINICAL INDICATION: Female, 54 years old with history of abdominal pain, Abdominal pain. Hx breast c a, liver cirrhosis. TECHNIQUE: Axial images were obtained from above the diaphragm to the pubic rami in the axial plane a t 5 mm thick sections. Reconstructed images are reviewed on the computer in the coronal plane. CONTRAST: 100 mL of Isovue 300. Study performed without Oral Contrast DLP: 1770.7 mGycm, Automated exposure control for dose reduction was used. FINDINGS: Limited CT sections are obtained the lung bases. The lung bases are clear. CT ABDOMEN: Moderate ascites is present Liver: Normal Spleen: Normal Pancreas: Normal Adrenal glands: The adrenal glands are normal. Gallbladder: There may be some wall calcification adjacent to the liver. Kidneys: No masses are evident. No hydronephrosis is present. No cysts are present. Delayed images were obtained through the kidneys, which remain unremarkable. Aorta: Normal Inferior vena cava: Normal. CT PELVIS: Small bowel is nondilated. However, some diffuse wall thickening through the jejunum may be present. Consider jejunitis. The study is without oral contrast limiting bowel evaluation. Appendix: Not identified. No suspicious dilated tubular structure identified. Clinical management of any suspected appendicitis is recommended. Urinary bladder: Decompressed and cannot be well evaluated Genitourinary structures: Uterus and ovaries are not identified Osseous structures: No suspicious lytic or sclerotic lesions. IMPRESSION: 1. Moderate ascites. 2. Some mild small bowel wall thickening not excluded. 2. Discrete abnormality to account for abdominal pain not identified. [facility], Workstation: [facility], 07/21/2024 9:51 AM
[2024-07-21 11:22] VITALS: RESP 16
[2024-07-21 11:23] VITALS: BP 135/68; PULSE 65
== END 2024-07-21 11:23 | disposition home or self-care (01) ==
LOC: EC 08:05
DX: R18.8 Other ascites (principal); R10.9 Unspecified abdominal pain; K74.60 Unspecified cirrhosis of liver; Z88.5 Allergy status to narcotic agent; Z88.0 Allergy status to penicillin
CPT/HCPCS: 36415; 80053; 83605; 83690; 85025; 81001; 74177; 99284; 96374; 96361 ×2; J2405; Q9967

== ENCOUNTER 2024-11-20 15:53 | Observation (INO) | payer MEDICARE, OTHER ==
[2024-11-20 16:10] LABS: Glucose,Whole Blood 79 mg/dL (70-110)
[2024-11-20 16:20] LABS: Glucose,Whole Blood 76 mg/dL (70-110)
[2024-11-20 16:45] LABS: VBG PH 7.4 (7.31-7.41)
[2024-11-20 16:46] LABS: Basophils # (A) 0.04 10*3/uL (0.00-0.10); Basophils % (A) 0.7 %; Eosinophils # (A) 0.18 10*3/uL (0.04-0.35); Eosinophils % (A) 3.2 %; HCT 44.7 % (37.2-46.3); Immature Platelet Fraction 2.3 % (1.1-6.1); Lymphocytes # (A) 1.99 10*3/uL (0.90-5.00); Lymphocytes % (A) 35.2 %; MCH 37.3 pg (27.0-32.0); MCHC 35.8 g/dL (32.0-37.0); MCV 104.2 fL (80.0-97.0); Mean Platelet Volume 10.7 fL (9.5-12.2); Monocytes # (A) 0.56 10*3/uL (0.20-1.00); Monocytes % (A) 9.9 %; Neutrophils # (A) 2.86 10*3/uL (1.80-7.70); Neutrophils % (A) 50.6 %; RBC 4.29 10*6/uL (4.10-5.20); RDW 15.7 % (11.5-14.5); WBC 5.65 10*3/uL (4.50-10.00)
[2024-11-20 16:58] LABS: INR 1.4 (<1.2); Partial Thromboplastin Time 26.2 sec (22.0-30.0); Prothrombin Time 14.3 sec (10.0-12.5)
[2024-11-20 17:06] LABS: ALT 61 U/L (4-34); African American GFR (CKD) >90 (>60 ml/min/1.73 sqM); Albumin 3.8 g/dL (3.5-5.0); Anion Gap 8 mmol/L; Blood Urea Nitrogen 17 mg/dL (7-17); Calcium 9.1 mg/dL (8.4-10.2); Carbon Dioxide 21 mmol/L (22-30); Chloride 111 mmol/L (98-107); Glucose 93 mg/dL (74-99); Non-African American GFR(CKD) >90 (>60 ml/min/1.73 sqM); Sodium 140 mmol/L (137-145); Total Bilirubin 3.4 mg/dL (0.2-1.3); Total Protein 8.5 g/dL (6.3-8.2)
[2024-11-20 17:07] LABS: Platelet Count 88 10*3/uL (140-440)
[2024-11-20 17:09] LABS: Potassium 4.2 mmol/L (3.5-5.1)
--- NOTE | 2024-11-20 17:09 | XR ---
EXAMINATION TYPE: XR chest 2V DATE OF EXAM: 11/20/2024 5:05 PM COMPARISON: None. CLINICAL INDICATION: Female, 54 years old with history of altered mental status: Shortness of breath TECHNIQUE: XR chest 2V views of the chest are obtained. FINDINGS: Scattered senescent parenchymal changes noted. Hyperinflation compatible with COPD. No evidence for infiltrate. No evidence for atelectasis. Heart size is stable. Mediastinal structures are stable and grossly unremarkable. No evidence for hilar prominence. Degenerative changes dorsal spine. IMPRESSION: 1. No evidence for acute pulmonary disease. [facility], , 11/20/2024 5:07 PM
[2024-11-20 17:10] LABS: AST 100 U/L (14-36); Alkaline Phosphatase 240 U/L (38-126)
--- NOTE | 2024-11-20 17:12 | CT ---
EXAMINATION TYPE: CT brain wo con DATE OF EXAM: 11/20/2024 COMPARISON: None CLINICAL INDICATION: Female, 54 years old with history of Altered mental status; PHH, ams, confusion TECHNIQUE: CT scan of the head is performed without contrast. CT DLP: 1092.[address] CTDI: mGy Automated exposure control for dose reduction was used. FINDINGS: There is no acute intracranial hemorrhage or midline shift identified. There is diffuse v entricular and sulcal prominence consistent with diffuse age-related cerebral atrophy. There is low- attenuation in the periventricular white matter consistent with chronic small vessel ischemic change. The globes are intact and the visualized sinuses are clear. IMPRESSION: No acute intracranial hemorrhage or midline shift. There is diffuse age-related cerebra l atrophy and chronic small vessel ischemic change noted. [facility], , 11/20/2024 5:10 PM
[2024-11-20 17:22] LABS: Influenza A Not Detected (Not Detectd); Influenza B Not Detected (Not Detectd); RSV Not Detected (Not Detectd)
[2024-11-20] MEDS ORDERED: NALOXONE 0.4 MG/ML 1 ML VIAL IV PRN (18:20)
[2024-11-20] MEDS: LACTULOSE 20 GM/30 ML CUP PO ONE (18:37)
[2024-11-20 19:00] LABS: Hyaline Casts,Urine 1 /lpf (0-2); Mucus,Urine Rare /hpf; RBC,Urine <1 /hpf (0-5); Squamous Epithelial Cell,Urine <1 /hpf (0-4); WBC,Urine <1 /hpf (0-5)
[2024-11-20 19:01] LABS: Amphetamine Screen,Urine Not Detected (NotDetected); Barbiturate Screen,Urine Not Detected (NotDetected); Benzodiazepines Screen,Urine Not Detected (NotDetected); Cocaine Screen,Urine Not Detected (NotDetected); Methadone Screen, Urine Not Detected (NotDetected); Opiate Screen,Urine Not Detected (NotDetected); Oxycodone Screen, Urine Not Detected (NotDetected); Phencyclidine Screen,Urine Not Detected (NotDetected); Tricyclic Antidepressant,Urine Not Detected (NotDetected); Urn Cannabinoid Scrn Not Detected (NotDetected)
--- NOTE | 2024-11-20 19:06 | ED ---
General Adult HPI - General Chief complaint: Neuro Symptoms/Deficit Stated complaint: AMS Time Seen by Provider: 11/20/24 16:10 Source: patient, RN notes reviewed, old records reviewed Mode of arrival: ambulatory Limitations: no limitations - History of Present Illness Initial comments: Patient is a 54-year-old female presents emergency department complaining of confusion and altered mental status. Apparently patient awoke with the symptoms . States she has been unable to use her phone and seems to have confusion at home with during certain activities. Denies any chest pain or headaches. Denies any blurry vision. Denies any shortness of breath. Denies any head trauma. Does have a history of alpha 1 antitrypsin deficiency and is on the list for liver transplant. History of hypertension as well. No history of strokes. Is not on blood thinners. Denies any head trauma. Presents for further evaluation at this time. Last known well was sometime last night yesterday. Awoke this morning with symptoms. Denies any weakness or numbness. - Related Data Home Medications Medication Instructions Recorded Confirmed Furosemide [Lasix] 40 mg PO DAILY 11/20/24 11/20/24 Losartan [Cozaar] 50 mg PO DAILY 11/20/24 11/20/24 Omeprazole 20 mg PO BID 11/20/24 11/20/24 Spironolactone [Aldactone] 100 mg PO DAILY 11/20/24 11/20/24 Allergies Allergy/AdvReac Type Severity Reaction Status Date / Time codeine AdvReac Vomiting Verified 11/20/24 18:50 Review of Systems ROS Statement: Those systems with pertinent positive or pertinent negative responses have been documented in the HPI. Review of Systems: CONST: Denies fever EYES: Denies blurry vision ENT: Denies nasal congestion C/V: Denies Chest pain RESP: Denies shortness of breath GI: Denies abdominal pain : Denies dysuria SKIN: Denies rash. MSK: Denies joint pain. NEURO: Denies headache ROS Other: All systems not noted in ROS Statement are negative. Past Medical History Past Medical History: Cancer, Hearing Disorder / Deafness, Hypertension, Liver Disease Additional Past Medical History / Comment(s): ALPHA 1 ANTITRYPSIN DEFICIENCY. RT BREAST CA. EDEMA LT LOWER LEG. NEPHROTIC SYNDROME. HEART MURMUR. F4 cirrhosis History of Any Multi-Drug Resistant Organisms: None Reported Past Surgical History: Section, Hysterectomy, Orthopedic Surgery, Tonsillectomy, Tubal Ligation, Uterine Ablation Additional Past Surgical History / Comment(s): KIDNEY BIOPSY. LT KNEE SCOPE 2010 Past Anesthesia/Blood Transfusion Reactions: Motion Sickness, Postoperative Nausea & Vomiting (PONV) Past Psychological History: No Psychological Hx Reported Smoking Status: Never smoker Past Alcohol Use History: None Reported Past Drug Use History: None Reported - Past Family History Sister(s) Family Medical History: Cancer General Exam - General Exam Comments Initial Comments: General: Appears in no acute distress. HEAD: Normal with no signs of head trauma. EYES: PERRLA, EOMI, conjunctiva normal, no discharge. Pupils are 3 mm equal bilaterally. ENT: Hearing grossly intact, normal oropharynx. RESPIRATORY: Clear breath sounds bilaterally. No wheezes, rales, or rhonchi. C/V: Regular rate and rhythm. S1 and S2 auscultated, peripheral pulses 2+ and intact throughout ABD: Abd is soft, nontender, nondistended EXT: Normal range of motion, no obvious deformity SKIN: No rashes or lesions observed on exposed skin. NEURO: Alert and oriented x 4. NIH of 0. GCS of 15. No focal deficits. No confusion. Limitations: no limitations Course Vital Signs 11/20/24 11/20/24 11/20/24 15:55 18:38 20:00 Temperature 97.7 F 97.9 F Pulse Rate 87 73 Pulse Rate [ 78 Pulse Oximetery ] Respiratory 18 17 16 Rate Blood Pressure 170/93 132/52 Blood Pressure 138/79 [Right Arm] O2 Sat by Pulse 95 97 94 L Oximetry 11/20/24 20:35 Temperature 97.9 F Pulse Rate 76 Pulse Rate [ Pulse Oximetery ] Respiratory 18 Rate Blood Pressure 128/63 Blood Pressure [Right Arm] O2 Sat by Pulse 97 Oximetry Medical Decision Making - Medical Decision Making Was pt. sent in by a medical professional or institution (, PA, CHERRY SORTER, urgent care, hospital, or retirement...) When possible be specific @ -No Did you speak to anyone other than the patient for history (EMS, parent, family, police, friend...)? What history was obtained from this source @ -No Did you review nursing and triage notes (agree or disagree)? Why? @ -I reviewed and agree with nursing and triage notes Were old charts reviewed (outside hosp., previous admission, EMS record, old EKG, old radiological studies, urgent care reports/EKG's, retirement records)? Report findings @ -No old charts were reviewed Differential Diagnosis (chest pain, altered mental status, abdominal pain women, abdominal pain men, vaginal bleeding, weakness, fever, dyspnea, syncope, headache, dizziness, GI bleed, back pain, seizure, CVA, palpatations, mental health, musculoskeletal)? @ -Differential Altered Mental Status: Hypoglycemia, DKA, hypercapnia, ETOH, overdose, CO poisoning, trauma, myxedema coma, HTN encephalopathy, infection, encephalitis, psychosis, intercranial hemorrhage, hepatic encephalopathy, meningitis, CVA, this is not meant to be an all-inclusive list EKG interpreted by me (3pts min.). @ -As above X-rays interpreted by me (1pt min.). @ -X-ray shows no obvious acute cardiopulmonary process. CT interpreted by me (1pt min.). @ -CT brain shows no obvious acute intracranial process. U/S interpreted by me (1pt. min.). @ -None done What testing was considered but not performed or refused? (CT, X-rays, U/S, labs)? Why? @ -None What meds were considered but not given or refused? Why? @ -None Did you discuss the management of the patient with other professionals (professionals i.e. , PA, CHERRY SORTER, lab, RT, psych nurse, high school social studies tutor, welfare visitor, teacher, chief mechanical officer, case maker)? Give summary @ -Discussed with TAYLOR Robles of [facility] who accepted the admission. Was smoking cessation discussed for >3mins.? @ -No Was critical care preformed (if so, how long)? @ -No Were there social determinants of health that impacted care today? How? (Homelessness, low income, unemployed, alcoholism, drug addiction, transportati on, low edu. Level, literacy, decrease access to med. care, usp, rehab)? @ -No Was there de-escalation of care discussed even if they declined (Discuss DNR or withdrawal of care, Hospice)? DNR status @ -No What co-morbidities impacted this encounter? (DM, HTN, Smoking, COPD, CAD, Cancer, CVA, ARF, Chemo, Hep., AIDS, mental health diagnosis, sleep apnea, morbid obesity)? @ -None Was patient admitted / discharged? Hospital course, mention meds given and route, prescriptions, significant lab abnormalities, going to OR and other pertinent info. @ -Based on the patient's presentation and physical exam, patient presents emergency department for altered mental status. Is having some confusion at home as well as issues with remembering how to do basic activities. Currently has no symptoms regarding this and no confusion. Is A and O x 4. Neuroexam is unremarkable. Vital signs are within acceptable limits. She does have a liver history. We will obtain general altered mental status workup including CT brain. Patient was in agreement this plan. NIH is 0. Symptoms seem to have started this morning but as NIH is 0 is not made a stroke activation. Numerous other possible etiologies could explain the symptoms. EKG shows no signs of acute ischemia. Chest x-ray unremarkable. CT brain unremarkable. Laboratory studies are remarkable for chronically elevated bilirubin as well as LFTs. Ammonia level is elevated to 52. Labs otherwise unremarkable. On reevaluation, patient is feeling improved. Discussed the results with the patient. She will be admitted on lactulose. Neurology consulted. She was in agreement this plan. I spoke with the admitting provider, TAYLOR Robles [facility] accepted the admission. Undiagnosed new problem with uncertain prognosis? @ -No Drug Therapy requiring intensive monitoring for toxicity (Heparin, Nitro, Insulin, Cardizem)? @ -No Were any procedures done? @ -No Diagnosis/symptom? @ -Altered mental status, hyperammonemia Acute, or Chronic, or Acute on Chronic? @ -Acute Uncomplicated (without systemic symptoms) or Complicated (systemic symptoms)? @ -Complicated Side effects of treatment? @ -No Exacerbation, Progression, or Severe Exacerbation? @ -No Poses a threat to life or bodily function? How? (Chest pain, USA, ID, pneumonia, PE, COPD, DKA, ARF, appy, cholecystitis, CVA, Diverticulitis, Homicidal, Suicidal, threat to staff... and all critical care pts) @ -Yes - Lab Data Result diagrams: 11/20/24 16:30 11/20/24 16:30 Lab Results 11/20/24 11/20/24 11/20/24 Range/Units 15:58 16:19 16:30 WBC 5.65 (4.50-10.00) 10*3/uL RBC 4.29 (4.10-5.20) 10*6/uL Hgb 16.0 H (12.0-15.0) g/dL Hct 44.7 (37.2-46.3) % MCV 104.2 H (80.0-97.0) fL MCH 37.3 H (27.0-32.0) pg MCHC 35.8 (32.0-37.0) g/dL Plt Count 88 L (140-440) 10*3/uL MPV 10.7 (9.5-12.2) fL Immature Gran % (Auto) 0.4 % Neutrophils % 50.6 % Lymphocytes % 35.2 % Monocytes % 9.9 % Eosinophils % 3.2 % Basophils % 0.7 % Immature Gran # 0.02 (0.00-0.04) 10*3/uL Neutrophils # 2.86 (1.80-7.70) 10*3/uL Lymphocytes # 1.99 (0.90-5.00) 10*3/uL Monocytes # 0.56 (0.20-1.00) 10*3/uL Eosinophils # 0.18 (0.04-0.35) 10*3/uL Basophils # 0.04 (0.00-0.10) 10*3/uL Manual Slide Review Performed Immature Plt Fraction 2.3 (1.1-6.1) % PT (10.0-12.5) sec INR (<1.2) APTT (22.0-30.0) sec VBG pH (7.31-7.41) VBG pCO2 (37-51) mmHg VBG HCO3 (24-28) mmol/L Sodium (137-145) mmol/L Potassium (3.5-5.1) mmol/L Chloride (98-107) mmol/L Carbon Dioxide (22-30) mmol/L Anion Gap mmol/L BUN (7-17) mg/dL Creatinine (0.52-1.04) mg/dL Est GFR (CKD-EPI)AfAm (>60 ml/min/1.73 sqM) Est GFR (CKD-EPI)NonAf (>60 ml/min/1.73 sqM) Glucose (74-99) mg/dL POC Glucose (mg/dL) 79 76 (70-110) mg/dL POC Glu Bulk Tank Driver ID Annmarie Madrigal Calcium (8.4-10.2) mg/dL Total Bilirubin (0.2-1.3) mg/dL AST (14-36) U/L ALT (4-34) U/L Alkaline Phosphatase (38-126) U/L Ammonia (<30) umol/L Total Protein (6.3-8.2) g/dL Albumin (3.5-5.0) g/dL Urine Color Urine Appearance (Clear) Urine pH (5.0-8.0) Ur Specific [place] (1.001-1.035) Urine Protein (Negative) Ur Protein Confirm Urine Glucose (UA) (Negative) Urine Ketones (Negative) Urine Blood (Negative) Urine Nitrite (Negative) Urine Bilirubin (Negative) Ur Bilirubin Confirm Urine Urobilinogen (<2.0) mg/dL Ur Leukocyte Esterase (Negative) Urine RBC (0-5) /hpf Urine WBC (0-5) /hpf Ur Squamous Epith Cells (0-4) /hpf Hyaline Casts (0-2) /lpf Urine Mucus (None) /hpf Urine Opiates Screen (NotDetected) Ur Oxycodone Screen (NotDetected) Urine Methadone Screen (NotDetected) Ur Barbiturates Screen (NotDetected) U Tricyclic Antidepress (NotDetected) Ur Phencyclidine Scrn (NotDetected) Ur Amphetamines Screen (NotDetected) U Methamphetamines Scrn (NotDetected) U Benzodiazepines Scrn (NotDetected) Urine Cocaine Screen (NotDetected) U Marijuana (THC) Screen (NotDetected) Serum Alcohol mg/dL Influenza Type A (PCR) (Not Detectd) Influenza Type B (PCR) (Not Detectd) RSV (PCR) (Not Detectd) SARS-CoV-2 (PCR) (Not Detectd) 11/20/24 11/20/24 11/20/24 Range/Units 16:30 16:30 16:30 WBC (4.50-10.00) 10*3/uL RBC (4.10-5.20) 10*6/uL Hgb (12.0-15.0) g/dL Hct (37.2-46.3) % MCV (80.0-97.0) fL MCH (27.0-32.0) pg MCHC (32.0-37.0) g/dL Plt Count (140-440) 10*3/uL MPV (9.5-12.2) fL Immature Gran % (Auto) % Neutrophils % % Lymphocytes % % Monocytes % % Eosinophils % % Basophils % % Immature Gran # (0.00-0.04) 10*3/uL Neutrophils # (1.80-7.70) 10*3/uL Lymphocytes # (0.90-5.00) 10*3/uL Monocytes # (0.20-1.00) 10*3/uL Eosinophils # (0.04-0.35) 10*3/uL Basophils # (0.00-0.10) 10*3/uL Manual Slide Review Immature Plt Fraction (1.1-6.1) % PT 14.3 H (10.0-12.5) sec INR 1.4 H (<1.2) APTT 26.2 (22.0-30.0) sec VBG pH (7.31-7.41) VBG pCO2 (37-51) mmHg VBG HCO3 (24-28) mmol/L Sodium 140 (137-145) mmol/L Potassium 4.2 (3.5-5.1) mmol/L Chloride 111 H (98-107) mmol/L Carbon Dioxide 21 L (22-30) mmol/L Anion Gap 8 mmol/L BUN 17 (7-17) mg/dL Creatinine 0.61 (0.52-1.04) mg/dL Est GFR (CKD-EPI)AfAm >90 (>60 ml/min/1.73 sqM) Est GFR (CKD-EPI)NonAf >90 (>60 ml/min/1.73 sqM) Glucose 93 (74-99) mg/dL POC Glucose (mg/dL) (70-110) mg/dL POC Glu Bulk Tank Driver ID Calcium 9.1 (8.4-10.2) mg/dL Total Bilirubin 3.4 H (0.2-1.3) mg/dL AST 100 H (14-36) U/L ALT 61 H (4-34) U/L Alkaline Phosphatase 240 H (38-126) U/L Ammonia 37 H (<30) umol/L Total Protein 8.5 H (6.3-8.2) g/dL Albumin 3.8 (3.5-5.0) g/dL Urine Color Urine Appearance (Clear) Urine pH (5.0-8.0) Ur Specific [place] (1.001-1.035) Urine Protein (Negative) Ur Protein Confirm Urine Glucose (UA) (Negative) Urine Ketones (Negative) Urine Blood (Negative) Urine Nitrite (Negative) Urine Bilirubin (Negative) Ur Bilirubin Confirm Urine Urobilinogen (<2.0) mg/dL Ur Leukocyte Esterase (Negative) Urine RBC (0-5) /hpf Urine WBC (0-5) /hpf Ur Squamous Epith Cells (0-4) /hpf Hyaline Casts (0-2) /lpf Urine Mucus (None) /hpf Urine Opiates Screen (NotDetected) Ur Oxycodone Screen (NotDetected) Urine Methadone Screen (NotDetected) Ur Barbiturates Screen (NotDetected) U Tricyclic Antidepress (NotDetected) Ur Phencyclidine Scrn (NotDetected) Ur Amphetamines Screen (NotDetected) U Methamphetamines Scrn (NotDetected) U Benzodiazepines Scrn (NotDetected) Urine Cocaine Screen (NotDetected) U Marijuana (THC) Screen (NotDetected) Serum Alcohol mg/dL Influenza Type A (PCR) (Not Detectd) Influenza Type B (PCR) (Not Detectd) RSV (PCR) (Not Detectd) SARS-CoV-2 (PCR) (Not Detectd) 11/20/24 11/20/24 11/20/24 Range/Units 16:30 16:30 16:30 WBC (4.50-10.00) 10*3/uL RBC (4.10-5.20) 10*6/uL Hgb (12.0-15.0) g/dL Hct (37.2-46.3) % MCV (80.0-97.0) fL MCH (27.0-32.0) pg MCHC (32.0-37.0) g/dL Plt Count (140-440) 10*3/uL MPV (9.5-12.2) fL Immature Gran % (Auto) % Neutrophils % % Lymphocytes % % Monocytes % % Eosinophils % % Basophils % % Immature Gran # (0.00-0.04) 10*3/uL Neutrophils # (1.80-7.70) 10*3/uL Lymphocytes # (0.90-5.00) 10*3/uL Monocytes # (0.20-1.00) 10*3/uL Eosinophils # (0.04-0.35) 10*3/uL Basophils # (0.00-0.10) 10*3/uL Manual Slide Review Immature Plt Fraction (1.1-6.1) % PT (10.0-12.5) sec INR (<1.2) APTT (22.0-30.0) sec VBG pH 7.40 (7.31-7.41) VBG pCO2 37 (37-51) mmHg VBG HCO3 23 L (24-28) mmol/L Sodium (137-145) mmol/L Potassium (3.5-5.1) mmol/L Chloride (98-107) mmol/L Carbon Dioxide (22-30) mmol/L Anion Gap mmol/L BUN (7-17) mg/dL Creatinine (0.52-1.04) mg/dL Est GFR (CKD-EPI)AfAm (>60 ml/min/1.73 sqM) Est GFR (CKD-EPI)NonAf (>60 ml/min/1.73 sqM) Glucose (74-99) mg/dL POC Glucose (mg/dL) (70-110) mg/dL POC Glu Bulk Tank Driver ID Calcium (8.4-10.2) mg/dL Total Bilirubin (0.2-1.3) mg/dL AST (14-36) U/L ALT (4-34) U/L Alkaline Phosphatase (38-126) U/L Ammonia (<30) umol/L Total Protein (6.3-8.2) g/dL Albumin (3.5-5.0) g/dL Urine Color Urine Appearance (Clear) Urine pH (5.0-8.0) Ur Specific [place] (1.001-1.035) Urine Protein (Negative) Ur Protein Confirm Urine Glucose (UA) (Negative) Urine Ketones (Negative) Urine Blood (Negative) Urine Nitrite (Negative) Urine Bilirubin (Negative) Ur Bilirubin Confirm Urine Urobilinogen (<2.0) mg/dL Ur Leukocyte Esterase (Negative) Urine RBC (0-5) /hpf Urine WBC (0-5) /hpf Ur Squamous Epith Cells (0-4) /hpf Hyaline Casts (0-2) /lpf Urine Mucus (None) /hpf Urine Opiates Screen (NotDetected) Ur Oxycodone Screen (NotDetected) Urine Methadone Screen (NotDetected) Ur Barbiturates Screen (NotDetected) U Tricyclic Antidepress (NotDetected) Ur Phencyclidine Scrn (NotDetected) Ur Amphetamines Screen (NotDetected) U Methamphetamines Scrn (NotDetected) U Benzodiazepines Scrn (NotDetected) Urine Cocaine Screen (NotDetected) U Marijuana (THC) Screen (NotDetected) Serum Alcohol <10 mg/dL Influenza Type A (PCR) Not Detected (Not Detectd) Influenza Type B (PCR) Not Detected (Not Detectd) RSV (PCR) Not Detected (Not Detectd) SARS-CoV-2 (PCR) Not Detected (Not Detectd) 11/20/24 11/20/24 Range/Units 17:25 18:00 WBC (4.50-10.00) 10*3/uL RBC (4.10-5.20) 10*6/uL Hgb (12.0-15.0) g/dL Hct (37.2-46.3) % MCV (80.0-97.0) fL MCH (27.0-32.0) pg MCHC (32.0-37.0) g/dL Plt Count (140-440) 10*3/uL MPV (9.5-12.2) fL Immature Gran % (Auto) % Neutrophils % % Lymphocytes % % Monocytes % % Eosinophils % % Basophils % % Immature Gran # (0.00-0.04) 10*3/uL Neutrophils # (1.80-7.70) 10*3/uL Lymphocytes # (0.90-5.00) 10*3/uL Monocytes # (0.20-1.00) 10*3/uL Eosinophils # (0.04-0.35) 10*3/uL Basophils # (0.00-0.10) 10*3/uL Manual Slide Review Immature Plt Fraction (1.1-6.1) % PT (10.0-12.5) sec INR (<1.2) APTT (22.0-30.0) sec VBG pH (7.31-7.41) VBG pCO2 (37-51) mmHg VBG HCO3 (24-28) mmol/L Sodium (137-145) mmol/L Potassium (3.5-5.1) mmol/L Chloride (98-107) mmol/L Carbon Dioxide (22-30) mmol/L Anion Gap mmol/L BUN (7-17) mg/dL Creatinine (0.52-1.04) mg/dL Est GFR (CKD-EPI)AfAm (>60 ml/min/1.73 sqM) Est GFR (CKD-EPI)NonAf (>60 ml/min/1.73 sqM) Glucose (74-99) mg/dL POC Glucose (mg/dL) (70-110) mg/dL POC Glu Bulk Tank Driver ID Calcium (8.4-10.2) mg/dL Total Bilirubin (0.2-1.3) mg/dL AST (14-36) U/L ALT (4-34) U/L Alkaline Phosphatase (38-126) U/L Ammonia 52 H (<30) umol/L Total Protein (6.3-8.2) g/dL Albumin (3.5-5.0) g/dL Urine Color Colorless Urine Appearance Clear (Clear) Urine pH 6.5 (5.0-8.0) Ur Specific [place] 1.007 (1.001-1.035) Urine Protein Negative (Negative) Ur Protein Confirm Not Reportable Urine Glucose (UA) Negative (Negative) Urine Ketones Negative (Negative) Urine Blood Negative (Negative) Urine Nitrite Negative (Negative) Urine Bilirubin Negative (Negative) Ur Bilirubin Confirm Not Reportable Urine Urobilinogen <2.0 (<2.0) mg/dL Ur Leukocyte Esterase Negative (Negative) Urine RBC <1 (0-5) /hpf Urine WBC <1 (0-5) /hpf Ur Squamous Epith Cells <1 (0-4) /hpf Hyaline Casts 1 (0-2) /lpf Urine Mucus Rare H (None) /hpf Urine Opiates Screen Not Detected (NotDetected) Ur Oxycodone Screen Not Detected (NotDetected) Urine Methadone Screen Not Detected (NotDetected) Ur Barbiturates Screen Not Detected (NotDetected) U Tricyclic Antidepress Not Detected (NotDetected) Ur Phencyclidine Scrn Not Detected (NotDetected) Ur Amphetamines Screen Not Detected (NotDetected) U Methamphetamines Scrn Not Detected (NotDetected) U Benzodiazepines Scrn Not Detected (NotDetected) Urine Cocaine Screen Not Detected (NotDetected) U Marijuana (THC) Screen Not Detected (NotDetected) Serum Alcohol mg/dL Influenza Type A (PCR) (Not Detectd) Influenza Type B (PCR) (Not Detectd) RSV (PCR) (Not Detectd) SARS-CoV-2 (PCR) (Not Detectd) - EKG Data -: EKG Interpreted by Me EKG Comments: 12-lead Electrocardiogram Interpretation Note EKG was reviewed and interpreted by myself. 12-lead ECG performed at 1615 is interpreted by me as revealing normal sinus rhythm at a rate of 71 beats per minute. Rhodes is normal. ME interval is 164 ms, QRS durations 101 ms, QTc is 398 ms.. There were no ST or T wave abnormalities to suggest myocardial ischemia or injury. R wave progression across the precordium was satisfactory. By my interpretation this EKG is non-diagnostic for acute ischemia. Disposition Clinical Impression: AMS (altered mental status), Hyperammonemia Disposition: ADMITTED IP TO THIS HOSP Condition: Stable Time of Disposition: 18:15
[2024-11-20 19:12] LABS: Appearance,Urine Clear (Clear); Bilirubin,Urine Negative (Negative); Blood,Urine Negative (Negative); Color,Urine Colorless; Glucose,Urine (UA) Negative (Negative); Ketones,Urine Negative (Negative); Leukocyte Esterase,Urine Negative (Negative); Nitrite,Urine Negative (Negative); PH, Urine 6.5 (5.0-8.0); Protein,Urine Negative (Negative); Specific Gravity,Urine 1.007 (1.001-1.035); Urobilinogen,Urine <2.0 mg/dL (<2.0)
[2024-11-20] MEDS: LACTULOSE 20 GM/30 ML CUP PO SCH (22:41)
[2024-11-21 07:37] VITALS: BP 119/73; PULSE 80; RESP 20; TEMP 98.2
[2024-11-21] MEDS: SPIRONOLACTONE 25 MG TAB PO SCH (08:19)
[2024-11-21] MEDS: FUROSEMIDE 40 MG TAB PO SCH (08:19)
[2024-11-21] MEDS: LOSARTAN 50 MG TAB PO SCH (08:19)
[2024-11-21] MEDS: ONDANSETRON 4 MG/2 ML VIAL IVP PRN (09:03)
[2024-11-21 10:39] LABS: Basophils # (A) 0.04 X 10*3/uL (0.00-0.10); Basophils % (A) 0.9 %; Eosinophils # (A) 0.12 X 10*3/uL (0.04-0.35); Eosinophils % (A) 2.6 %; HCT 39.3 % (37.2-46.3); Immature Platelet Fraction 3.1 % (1.1-6.1); Lymphocytes # (A) 1.57 X 10*3/uL (0.90-5.00); Lymphocytes % (A) 34.1 %; MCH 35.1 pg (27.0-32.0); MCHC 33.1 g/dL (32.0-37.0); MCV 106.2 FL (80.0-97.0); Macrocytosis (M) 2+ (None Seen); Mean Platelet Volume 11.4 FL (9.5-12.2); Monocytes # (A) 0.63 X 10*3/uL (0.20-1.00); Monocytes % (A) 13.7 %; NRBC Per 100 WBC 0 X 10*3/uL (0.00-0.01); Neutrophils # (A) 2.22 X 10*3/uL (1.80-7.70); Neutrophils % (A) 48.3 %; Platelet Count 76 X 10*3/uL (140-440); RDW 15.8 % (11.5-14.5)
--- NOTE | 2024-11-21 10:49 | P.DS ---
Providers Date of admission: 11/20/24 18:21 Attending physician: Wilfredo Beadr Consults: 11/20/24 18:31 Consult Physician Routine Consulting Provider: Mera Stuart Consult Reason/Comments: AMS, hyperammonemia Do you want consulting provider notified?: Yes Primary care physician: Zayda Fox MD Hospital Course: 54-year-old pleasant female came in with complaints of confusion altered mental status does have history of cirrhosis patient ammonia is slightly elevated when she came in it was a hemolyzed sample it was much more high urine produced 55 in the liter of testing. Patient's ammonia did not come down much but her symptoms resolved at this time. Patient does not have any symptoms of encephalopathy or stroke at this time I suspicion for stroke is low and CT of the head did not show any significant abnormality. Patient does not take lactulose on regular basis at home. Patient does not have any evidence of infection. Patient is feeling much better will be discharged today. Patient does not have any significant electrolyte abnormality is not on any medications that can cause confusion. REVIEW OF SYSTEMS: All other systems are negative except those mentioned in the HPI PHYSICAL EXAMINATION: GENERAL: The patient is alert and oriented x3, not in any acute distress. Well developed, well nourished. HEENT: Pupils are round and equally reacting to light. EOMI. No scleral icterus. No conjunctival pallor. Normocephalic, atraumatic. No pharyngeal erythema. No thyromegaly. CARDIOVASCULAR: S1 and S2 present. No murmurs, rubs, or gallops. PULMONARY: Chest is clear to auscultation, no wheezing or crackles. ABDOMEN: Soft, nontender, nondistended, normoactive bowel sounds. No palpable organomegaly. MUSCULOSKELETAL: No joint swelling or deformity. EXTREMITIES: No cyanosis, clubbing, or pedal edema. NEUROLOGICAL: Gross neurological examination did not reveal any focal deficits. SKIN: No rashes. 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 Patient will continue on Aldactone and Lasix. Patient does not have any significant ascites at this time - Thrombocytopenia and elevated MCV secondary to cirrhosis - Alpha-1 antitrypsin deficiency - Hypertension patient does not take losartan anymore and she will not require losartan at this time patient to stop taking this medication since she was started on Lasix and Aldactone. Patient will be discharged today in stable medical condition to home. Patient Condition at Discharge: Stable Plan - Discharge Summary Discharge Rx Participant: Yes New Discharge Prescriptions: New Lactulose [Cephulac] 20 gm PO TID #600 ml Discontinued Losartan [Cozaar] 50 mg PO DAILY No Action Furosemide [Lasix] 40 mg PO DAILY Spironolactone [Aldactone] 100 mg PO DAILY Omeprazole 20 mg PO BID Discharge Medication List Furosemide [Lasix] 40 mg PO DAILY 11/20/24 [History] Omeprazole 20 mg PO BID 11/20/24 [History] Spironolactone [Aldactone] 100 mg PO DAILY 11/20/24 [History] Lactulose [Cephulac] 20 gm PO TID #600 ml 11/21/24 [Rx] Follow up Appointment(s)/Referral(s): Zayda Fox MD [Primary Care Provider] - 3 Days Discharge Disposition: HOME SELF-CARE
--- NOTE | 2024-11-21 10:49 | P.HPIM ---
History of Present Illness 54-year-old pleasant female came in with complaints of confusion altered mental status does have history of cirrhosis patient ammonia is slightly elevated when she came in it was a hemolyzed sample it was much more high urine produced 55 in the liter of testing. Patient's ammonia did not come down much but her symptoms resolved at this time. Patient does not have any symptoms of encephalopathy or stroke at this time I suspicion for stroke is low and CT of the head did not show any significant abnormality. Patient does not take lactulose on regular basis at home. Patient does not have any evidence of infection. Patient is f eeling much better will be discharged today. Patient does not have any significant electrolyte abnormality is not on any medications that can cause confusion. REVIEW OF SYSTEMS: All other systems are negative except those mentioned in the HPI PHYSICAL EXAMINATION: GENERAL: The patient is alert and oriented x3, not in any acute distress. Well developed, well nourished. HEENT: Pupils are round and equally reacting to light. EOMI. No scleral icterus. No conjunctival pallor. Normocephalic, atraumatic. No pharyngeal erythema. No thyromegaly. CARDIOVASCULAR: S1 and S2 present. No murmurs, rubs, or gallops. PULMONARY: Chest is clear to auscultation, no wheezing or crackles. ABDOMEN: Soft, nontender, nondistended, normoactive bowel sounds. No palpable organomegaly. MUSCULOSKELETAL: No joint swelling or deformity. EXTREMITIES: No cyanosis, clubbing, or pedal edema. NEUROLOGICAL: Gross neurological examination did not reveal any focal deficits. SKIN: No rashes. 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 Patient will continue on Aldactone and Lasix. Patient does not have any significant ascites at this time - Thrombocytopenia and elevated MCV secondary to cirrhosis - Alpha-1 antitrypsin deficiency - Hypertension patient does not take losartan anymore and she will not require losartan at this time patient to stop taking this medication since she was started on Lasix and Aldactone. Patient will be discharged today in stable medical condition to home. Past Medical History Past Medical History: Cancer, Hearing Disorder / Deafness, Hypertension, Liver Disease Additional Past Medical History / Comment(s): ALPHA 1 ANTITRYPSIN DEFICIENCY. RT BREAST CA. EDEMA LT LOWER LEG. NEPHROTIC SYNDROME. HEART MURMUR. F4 cirrhosis History of Any Multi-Drug Resistant Organisms: None Reported Past Surgical History: Section, Hysterectomy, Orthopedic Surgery, Tonsillectomy, Tubal Ligation, Uterine Ablation Additional Past Surgical History / Comment(s): KIDNEY BIOPSY. LT KNEE SCOPE 2010 Past Anesthesia/Blood Transfusion Reactions: Motion Sickness, Postoperative Nausea & Vomiting (PONV) Additional Past Anesthesia/Blood Transfusion Reaction / Comment(s): pt states last time she went under anesthesia she had to be given ketamine because anesthesia wasnt working Past Psychological History: No Psychological Hx Reported Smoking Status: Never smoker Past Alcohol Use History: None Reported Past Drug Use History: None Reported - Past Family History Sister(s) Family Medical History: Cancer Medications and Allergies Home Medications Medication Instructions Recorded Confirmed Type Furosemide [Lasix] 40 mg PO DAILY 11/20/24 11/20/24 History Omeprazole 20 mg PO BID 11/20/24 11/20/24 History Spironolactone [Aldactone] 100 mg PO DAILY 11/20/24 11/20/24 History Lactulose [Cephulac] 20 gm PO TID #600 ml 11/21/24 Rx Allergies Allergy/AdvReac Type Severity Reaction Status Date / Time codeine AdvReac Vomiting Verified 11/20/24 18:50 Physical Exam Vitals: Vital Signs Temp Pulse Pulse Resp BP BP Pulse Ox 11/21/24 07:48 93 L 11/21/24 07:23 98.2 F 80 20 119/73 93 L 11/21/24 01:07 97.6 F 75 6 L 114/71 95 11/20/24 20:35 97.9 F 76 18 128/63 97 11/20/24 20:00 97.9 F 78 16 138/79 94 L 11/20/24 18:38 73 17 132/52 97 11/20/24 15:55 97.7 F 87 18 170/93 95 Intake and Output 11/20/24 11/21/24 11/21/24 22:59 06:59 14:59 Intake Total 480 540 Balance 480 540 Intake: Oral 480 540 Other: # Voids 5 # Bowel Movements 3 Weight 90.718 kg Results CBC & Chem 7: 11/21/24 04:37 11/20/24 16:30 Labs: Abnormal Lab Results - Last 24 Hours (Table) 11/20/24 11/20/24 11/20/24 Range/Units 16:30 16:30 16:30 RBC (4.10-5.20) X 10*6/uL Hgb 16.0 H (12.0-15.0) g/dL MCV 104.2 H (80.0-97.0) fL MCH 37.3 H (27.0-32.0) pg RDW (11.5-14.5) % Plt Count 88 L (140-440) 10*3/uL Macrocytosis (manual) (None Seen) PT 14.3 H (10.0-12.5) sec INR 1.4 H (<1.2) VBG HCO3 (24-28) mmol/L Chloride 111 H (98-107) mmol/L Carbon Dioxide 21 L (22-30) mmol/L Total Bilirubin 3.4 H (0.2-1.3) mg/dL AST 100 H (14-36) U/L ALT 61 H (4-34) U/L Alkaline Phosphatase 240 H (38-126) U/L Ammonia (<30) umol/L Total Protein 8.5 H (6.3-8.2) g/dL Urine Mucus (None) /hpf 11/20/24 11/20/24 11/20/24 Range/Units 16:30 16:30 17:25 RBC (4.10-5.20) X 10*6/uL Hgb (12.0-15.0) g/dL MCV (80.0-97.0) fL MCH (27.0-32.0) pg RDW (11.5-14.5) % Plt Count (140-440) 10*3/uL Macrocytosis (manual) (None Seen) PT (10.0-12.5) sec INR (<1.2) VBG HCO3 23 L (24-28) mmol/L Chloride (98-107) mmol/L Carbon Dioxide (22-30) mmol/L Total Bilirubin (0.2-1.3) mg/dL AST (14-36) U/L ALT (4-34) U/L Alkaline Phosphatase (38-126) U/L Ammonia 37 H 52 H (<30) umol/L Total Protein (6.3-8.2) g/dL Urine Mucus (None) /hpf 11/20/24 11/21/24 11/21/24 Range/Units 18:00 04:37 04:37 RBC 3.70 L (4.10-5.20) X 10*6/uL Hgb (12.0-15.0) g/dL MCV 106.2 H (80.0-97.0) fL MCH 35.1 H (27.0-32.0) pg RDW 15.8 H (11.5-14.5) % Plt Count 76 L (140-440) 10*3/uL Macrocytosis (manual) 2+ A (None Seen) PT (10.0-12.5) sec INR (<1.2) VBG HCO3 (24-28) mmol/L Chloride (98-107) mmol/L Carbon Dioxide (22-30) mmol/L Total Bilirubin (0.2-1.3) mg/dL AST (14-36) U/L ALT (4-34) U/L Alkaline Phosphatase (38-126) U/L Ammonia 51 H (<30) umol/L Total Protein (6.3-8.2) g/dL Urine Mucus Rare H (None) /hpf Thrombosis Risk Factor Assmnt - Choose All That Apply Any of the Below Risk Factors Present?: Yes Each Factor Represents 1 point: Age 41-60 years, Obesity (BMI >25), Swollen legs (current) Other Risk Factors: No Other congenital or acquired thrombophilia - If yes, enter type in comment: No Thrombosis Risk Factor Assessment Total Risk Factor Score: 3 Thrombosis Risk Factor Assessment Level: Moderate Risk
[2024-11-21 11:18] LABS: ALT 52 U/L (8-44); AST 71 U/L (13-35); Albumin 2.9 g/dL (3.8-4.9); Albumin/Globulin Ratio 0.85 Ratio (1.60-3.17); Alkaline Phosphatase 146 U/L (41-126); BUN/Creat Ratio 23.86 Ratio (12.00-20.00); Blood Urea Nitrogen 16.7 mg/dL (9.0-27.0); Calcium 8.4 mg/dL (8.7-10.3); Carbon Dioxide 19.6 mmol/L (21.6-31.8); Chloride 108 mmol/L (96-109); Globulin 3.4 g/dL (1.6-3.3); Glucose 103 mg/dL (70-110); Potassium 3.7 mmol/L (3.5-5.5); Sodium 137 mmol/L (135-145); Total Bilirubin 2.4 mg/dL (0.3-1.2); Total Protein 6.3 g/dL (6.2-8.2)
== END 2024-11-21 11:22 | disposition home or self-care (01) ==
LOC: EC 15:53 → UNDOADMIN 18:21 → 5NMEDONC 18:21 → INTOOBSV 18:22 → 5NMEDONC 19:59 → UNDODISIN 11-21 11:22
PROVIDERS: ADMIT Hospitalist; ATTEND Hospitalist
DX: K76.82 Hepatic encephalopathy (principal); K74.60 Unspecified cirrhosis of liver; E88.01 Alpha-1-antitrypsin deficiency; I10 Essential (primary) hypertension; D69.6 Thrombocytopenia, unspecified; Z76.82 Awaiting organ transplant status; Z79.899 Other long term (current) drug therapy; Z85.3 Personal history of malignant neoplasm of breast; Z87.441 Personal history of nephrotic syndrome; Z88.5 Allergy status to narcotic agent
CPT/HCPCS: 96374; 99285; 36415; 94760; 93005; 80053 ×2; 82140 ×2; 82803; 85025 ×2; 85610; 85730; 81003; 80306; 80320; 87636; 71046; 70450; G0378 ×2; J2405